=== PATIENT | female | born 1980 | race Two or more races ===

== ENCOUNTER 2024-06-08 08:17 | Emergency (ER) | payer MEDICAID, SELFPAY ==
[2024-06-08 08:32] VITALS: BP 122/84; PULSE 95; RESP 19; TEMP 36.7; O2SAT 100; BMI 31.8
--- NOTE | 2024-06-08 08:55 | XR_ITS ---
Examination: Shoulder,right, 3 views Technique: Shoulder AP internal rotation, AP external rotation, Y view shoulder, 3 views Exam date and time :June 08, 2024 0915 hrs. Indications: Right shoulder pain today Findings: Mild narrowing glenohumeral joint No shoulder fracture or dislocation No acute separation Impression: Mild narrowing glenohumeral joint
[2024-06-08] MEDS: KETOROLAC INJ 60 MG/2 ML VIAL 30 MG IM (09:07)
[2024-06-08] MEDS: CYCLObenzaPRINE 5 MG TABLET PO (09:08)
--- NOTE | 2024-06-08 09:47 | EDNOTE_ITS ---
Upper Extremity Injury RME/HPI General Chief Complaint: Extremity Injury, Upper Stated Complaint: RIGHT ARM PAIN Time Seen by Provider: 06/08/24 08:24 Arrival date/time: 06/08/24 08:17 Limitations: no limitations RME / HPI RME / HPI narrative: 44-year-old female presents for evaluation of right shoulder pain x3 hrs. She reports spontaneous onset when she woke this morning and describes it as aching with radiation to her right scapula. She denies numbness, tingling, neck pain, headache, visual changes. Denies chest pain and shortness of breath. She denies taking medication prior to arrival to the ED. MD complaint: injury to: right Onset (ago): hour(s) Relieving factors: none Exacerbating factors: none Related Data Home Medications ?Medication ?Instructions ?Recorded ?Confirmed glipizide 10 mg tablet 10 mg PO BID 05/08/18 05/08/18 insulin glargine 100 unit/mL (3 70 units subcut QDAY 05/08/18 05/08/18 mL) subcutaneous pen (Basaglar KwikPen U-100 Insulin) insulin lispro 100 unit/mL 30 unit subcut QDAY 05/08/18 05/08/18 subcutaneous pen (Humalog KwikPen (U-100) Insulin) linagliptin 5 mg tablet (Tradjenta) 5 mg PO QDAY 05/08/18 05/08/18 lisinopril 20 mg tablet 20 mg PO QDAY 05/08/18 05/08/18 metformin 850 mg tablet 850 mg PO TID 05/08/18 05/08/18 Previous Rx's ?Medication ?Instructions ?Recorded cyclobenzaprine 10 mg tablet 10 mg PO TID PRN muscle spasm #20 06/08/24 tabs Allergies Allergy/AdvReac Type Severity Reaction Status Date / Time No Known Allergies Allergy Verified 06/08/24 08:20 Review of Systems Constitutional Constitutional: Denies body ache(s), Denies chills, Denies excessive sweating, Denies fever(s), Denies headache(s), Denies night sweats and Denies weakness ENT Ears, Nose, Mouth, and Throat: Denies disequilibrium, Denies dizziness, Denies headache(s) and Denies neck pain Cardiovascular Cardiovascular: Denies chest pain, Denies dyspnea, Denies leg edema and Denies palpitations Respiratory Respiratory: Denies cough, Denies dyspnea and Denies wheezing Gastrointestinal Gastrointestinal: Denies abdominal pain, Denies nausea and Denies vomiting Musculoskeletal Musculoskeletal: Reports arthralgias (right shoulder), Reports back pain (right scapular ), Denies neck pain, Denies numbness and Denies tingling Integumentary/Breasts Skin/Breast: Denies rash and Denies wounds Neurologic Neurologic: Denies disequilibrium, Denies dizziness, Denies headache(s), Denies numbness, Denies tingling and Denies weakness Endocrine Endocrine: Denies excessive sweating and Denies palpitations Allergic/Immunologic Allergic/Immunologic: Denies wheezing Past Medical History Past Medical History CARDIAC: Positive Hypercholesterolemia and Hypertension; Negative Congestive Heart Failure RESPIRATORY: Negative Chronic Obstructive Pulmonary Disease (COPD) GENITOURINARY: Negative Renal Disease ENDOCRINE: Positive Diabetes Mellitus Type 2; Negative Diabetes Mellitus Type 1 Surgical History SURGICAL: Positive Section Social History SMOKING STATUS: Never smoker ED Exam General Limitations: Present no limitations General appearance: Present alert and in no apparent distress Head Head exam: Present atraumatic and normocephalic Eye Eye exam: Present normal appearance and EOMI ENT ENT exam: Present mucous membranes moist and normal external ear exam Neck Neck exam: Present normal inspection and full ROM Expanded Neck Exam Neck exam focused ED: Absent midline tenderness or paraspinal tenderness Chest Chest inspection: Present normal inspection and symmetric chest wall rise Respiratory Respiratory exam: Present normal lung sounds bilaterally; Absent respiratory distress Cardiovascular Cardiovascular exam: Present regular rate, +S1 and +S2 Abdominal Exam Abdominal exam: Present soft; Absent distention Expanded Upper Extremity Exam Shoulder exam: Present normal inspection and full ROM; Absent tenderness, swelling, ecchymosis, deformity, crepitus, dislocation or tenderness over AC joint Arm exam: Present normal inspection and full ROM Elbow exam: Present normal inspection and full ROM Forearm/Wrist exam: Present normal inspection and full ROM Hand exam: Present normal inspection and full ROM Vascular exam: Normal capillary refill Back Exam Back exam: Present normal inspection, full ROM and muscle spasm (right scapular region ); Absent paraspinal tenderness or vertebral tenderness Neurological Exam Neurological exam: Present alert and normal gait; Absent motor sensory deficit Psychiatric Psychiatric exam: Present normal affect Skin Skin exam: Present warm, dry, intact and normal color Course Quality Measures none Orders Category Date Time Status XR shoulder RT min 2V Stat Exams 06/08/24 08:55 Taken CYCLObenzaPRINE [Flexeril] Med 06/08/24 08:55 Discontinued 5 mg PO X1 ONE Ketorolac Inj [Toradol Inj] Med 06/08/24 08:55 Discontinued 30 mg IM X1 ONE Vital Signs Vital signs: Vital Signs Temperature 98.1 F 06/08/24 08:32 Pulse Rate 95 06/08/24 08:32 Respiratory Rate 19 06/08/24 08:32 Blood Pressure 122/84 06/08/24 08:32 Pulse Oximetry (%) 100 06/08/24 08:32 Oxygen Delivery Method Room Air 06/08/24 08:32 Pulse ox 100% on room air, within normal limits. Extremity Injury MDM Narrative MDM Narrative:: * The absence of chest pain and shortness of breath makes a serious cardiac event like a myocardial infarction less likely, though not ruled out entirely. * The lack of associated neurological symptoms (numbness, tingling, or weakness) makes a cervical radiculopathy or more severe nerve injury less likely, but the radiation of pain to the scapula could suggest a musculoskeletal or referred pain origin. * No C-spine tenderness to palpation, pointing away from cervical impingement. * No evidence of dislocation on physical exam or x-ray right shoulder today. No acute humeral fracture or clavicular fracture seen on my wet read. * The patient?s normal vital signs and absence of fever help rule out infection- related causes (e.g., septic arthritis or osteomyelitis). More likely muscle spasm, for which the patient was given a short course of antispasmodics. Patient agreeable with plan for discharge home with follow-up with primary care within the next 3 to 4 days for reevaluation. Patient stable at time of discharge. Patient data External records reviewed:: [facility] previous records Clinical information provided by:: patient and family Social determinants that could affect healthcare access:: none Patient has the following chronic illnesses:: Diabetes. How is presenting disease/condition affected by chronic disease/condition?: uneffected by Evaluation data The following diagnostics were reviewed and interpreted by me:: radiology exam(s) Lab and/or radiology exams considered but not ordered:: Labs considered not ordered. Interpretation Summary: No acute fracture or dislocation on x-ray of right shoulder. Medications / Prescriptions Medications or Prescriptions considered but not ordered:: Rx given. Medication administrations:: Medication Administration History Discontinued Medications Cyclobenzaprine HCl (Cyclobenzaprine 5 Mg Tablet) 5 mg PO X1 ONE Stop: 06/08/24 08:56 Last Admin: 06/08/24 09:08 Dose: 5 mg Documented By: BEATRIZ Ketorolac Tromethamine (Ketorolac Inj 60 Mg/2 Ml Vial) 30 mg IM X1 ONE Stop: 06/08/24 08:56 Last Admin: 06/08/24 09:07 Dose: 30 mg Documented By: BEATRIZ Rx given. Consultations Consultation(s) initiated? (list below): No Diagnosis Upper Extremity Injury Differential Diagnosis: dislocation of shoulder, fracture of clavicle and other Most likely diagnosis given after review of the tests above:: Muscle spasm. Admission Indicated Admission indicated?: not indicated Admission Request Was there a request for admission?: No Disposition Plan Disposition Plan: Discharge Discharge Attestation Discharge Attestation: The patient and all family members were given an opportunity to ask questions and understood the discharge instructions. Discharge instructions specifically effects, indications for sooner follow up or return to the emergency department, and the expected course of current diagnosis. Patient condition: Stable Discharge Plan Plan Patient Disposition: HOME (Self Care) Disposition Comment: stable Prescriptions/Referrals Prescriptions/Med Rec: New cyclobenzaprine 10 mg tablet 10 mg PO TID PRN (Reason: muscle spasm) Qty: 20 0RF No Action lisinopril 20 mg Tablet 20 mg PO QDAY glipizide 10 mg Tablet 10 mg PO BID metformin 850 mg Tablet 850 mg PO TID insulin lispro [Humalog KwikPen Insulin] 100 unit/mL Insulin Pen 30 unit SUBCUT QDAY insulin glargine [Basaglar KwikPen U-100 Insulin] 100 unit/mL (3 mL) Insulin Pen 70 units subcut QDAY linagliptin [Tradjenta] 5 mg Tablet 5 mg PO QDAY Referrals: Shyanne Parmar FNP [Primary Care Provider] - In 1 week Problem List Clinical Impression: Muscle spasm, Acute pain of right shoulder Patient/Caregiver Discharge Instructions Other Activity Instructions:: Take antispasmodic medication as needed for his muscle spasm. Follow-up with primary care within the next 3 to 4 days for reevaluation of right shoulder pain. Return to the ED if your symptoms worsen or change. Education Materials: ED Back Spasm, No Trauma Print Language: English Stand Alone Forms: [email or web address] Patient Portal Info Letter PA/PATTERN GENERATOR OPERATOR Supervising Physician PA/PATTERN GENERATOR OPERATOR Supervising Physician: Dr. Livingston
== END 2024-06-08 10:26 | disposition home or self-care (01) ==
PROVIDERS: Emergency Provider Emergency Medicine; PCP Registered Nurse
DX: M62.838 Other muscle spasm (principal); M25.511 Pain in right shoulder
CPT/HCPCS: 73030; 96372; 99283; J1885; A9270

== ENCOUNTER 2024-11-22 05:40 | Day surgery (SDC) | payer MEDICAID, SELFPAY ==
--- NOTE | 2024-11-21 06:30 | EKG_ITS ---
[facility] Test Date: 2024-11-21 Pat Name: FERNANDO WEAVER Department: Room: - Gender: Female Housing Management Representative: [facility] : 1980 Requested By: Oseas Adair Order Number: [id number] Reading MD: Oseas Adair Measurements Intervals [place] Rate: 94 P: 33 IA: 166 QRS: -36 QRSD: 96 T: 32 QT: 341 QTc: 428 Interpretive Statements SINUS RHYTHM MARKED LEFT AXIS DEVIATION [QRS AXIS < -30] PATTERN CONSISTENT WITH PULMONARY DISEASE Compared to ECG 05/08/2018 11:29:55 Left-axis deviation now present /store/S0/[id number].pdf
[2024-11-21 09:18] VITALS: BMI 33.0
[2024-11-21 11:40] LABS: Basophils % (Auto) 0 % (0-2.5); Eosinophils # (Auto) 0.1 Thou/mm3 (0.0-0.5); Eosinophils % (Auto) 2 % (0-10); Hematocrit 43.6 % (36.0-46.0); Hemoglobin 13.6 g/dL (12.0-16.0); Immature Granulocytes % (Auto) 0 % (0-0); Immature Granulocytes Auto 0.02 Thou/mm3 (0.00-0.00); Lymphocytes % (Auto) 33 % (10-50); Mean Corpuscular HGB Conc 31.2 g/dl (31.0-37.0); Mean Corpuscular Hemoglobin 24.4 pg (25.0-35.0); Mean Corpuscular Volume 78 fL (80-100); Monocytes # (Auto) 0.6 Thou/mm3 (0.0-0.8); Monocytes % (Auto) 9 % (0-12); Neutrophils # (Auto) 3.5 Thou/mm3 (1.8-7.7); Neutrophils % (Auto) 56 % (37-80); Nucleated Red Blood Cell % 0 /100 WBC (0); Platelet Count 294 Thou/mm3 (140-440); RDW Standard Deviation 51.1 fL (36.4-46.3); Red Blood Count 5.58 Miln/mm3 (4.00-5.20); White Blood Count 6.2 Thou/mm3 (3.6-11.0)
[2024-11-21 11:50] LABS: Partial Thromboplastin Time 26.2 Seconds (22.0-36.0); Prothrombin Time 10.6 Seconds (9.0-12.2)
[2024-11-21 12:01] LABS: Alanine Aminotransferase 23 U/L (10-49); Albumin, Serum 4.7 gm/dL (3.5-5.0); Albumin/Globulin Ratio 1.3 (1.2-2.2); Alkaline Phosphatase 51 U/L (46-116); Anion Gap 10 (7-16); Aspartate Amino Transferase 26 U/L (0-34); BUN/Creatinine Ratio 16 Ratio (12-20); Bilirubin,Total 0.4 mg/dL (0.3-1.2); Blood Urea Nitrogen 14 mg/dL (9-23); Calcium 9.3 mg/dL (8.3-10.6); Calcium (Corrected) 9.3 mg/dL (8.5-10.1); Carbon Dioxide 27.2 mMol/L (20.0-31.0); Chloride 103 mMol/L (98-107); Creatinine (Component) 0.9 mg/dL (0.6-1.3); Estimated Creatinine Clearance 87.4 mL/min (>60); Globulin 3.6 gm/dL (2.3-3.5); Glucose 113 mg/dL (74-106); Osmolality,Calculated 280 (275-295); Potassium 4.1 mMol/L (3.4-5.1); Sodium 140 mMol/L (136-145); Total Protein 8.3 gm/dL (5.7-8.2); eGFR > 60 See Note
[2024-11-22] VITALS (8 sets, daily range): BP systolic 123–159; BP diastolic 81–98; PULSE 89–93; RESP 14–20; TEMP 36.6–36.8; O2SAT 95–99; BMI 32.3
[2024-11-22] MEDS: RINGERS LACTATED 1000 ML 1,000 ML 20 ML IV (06:47)
--- NOTE | 2024-11-22 09:11 | PD.SUROPNT ---
Date of Procedure 11/22/24 Pre Op Diagnosis Symptomatic varicose veins left lower extremity Post Op Diagnosis Same as preop diagnosis Procedure Endovenous radiofrequency ablation of the greater saphenous vein left lower extremity Varicose vein excisions left lower extremity through 46 separate incisions Findings Successful ablation of the greater saphenous vein with no evidence of thrombus in the saphenofemoral junction or the common femoral vein All marked varicose veins were successfully removed or disrupted Procedure Description With the patient standing in the preop area all varicose veins removed were carefully marked with a sharpie pen. The patient was then brought to the operating room and general anesthesia was induced. The left lower extremity was sterilely prepped and draped. The vein ablation procedure was performed first by mapping out the course of the greater saphenous vein between the knee and the saphenofemoral junction on the left medial thigh. The saphenous vein was then accessed with a 21-gauge mini stick needle just proximal to the knee followed by mini stick wire then a 7 Sloven[place] sheath introducer was placed. The ablation catheter was brought to the field prepped and placed into the patient with the catheter tip carefully positioned 3 to 5 cm distal to the saphenofemoral junction. Tumescent anesthesia was then instilled in the subcutaneous tissues surrounding the vein over the treatment length. Catheter tip position was once again ensured to be 3 to 5 cm distal to the saphenofemoral junction then under direct ultrasound compression the catheter was activated with 2 cycles proximally and 2 additional cycles down the leg. The saphenofemoral junction and common femoral vein were then inspected and found to be compressible with good flow and augmentation and no evidence of thrombus. Attention was then turned to the marked varicose veins which were removed by making a small skin pau with a #11 blade then bluntly enlarging the incision and grasping the veins with a mosquito clamp or a vein hook and sequentially excising them or disrupting them. When hemostasis was obtained and the wounds the leg was washed and then Steri-Strips were applied then a sterile dressing was applied with gauze, Kerlix and an Lorenzo wrap. Patient woke from anesthesia and was moved to recovery in stable condition Anesthesia other (Laryngeal mask anesthesia) Pathology / specimen Other (Left leg varicose veins) Pathology comment: Left leg varicose veins Estimated Blood Loss 50 Condition Stable Disposition PACU Surgeon Oseas Paz MD Surgical Staff Operation Date: 11/22/24 07:30 Case Staff Anesthesiologist: Justen Carter WOMEN'S BASKETBALL COACH: James Velasquez
--- NOTE | 2024-11-22 09:26 | SUR.PHASEI ---
pt arrived to PACU via gurney drowsy but arouses to voice, breathing unlabored, dressing to left lower extremity clean, dry, and intact, report from Gurdeep SMYTH, Gen MOCTEZUMA, and Dr Carter
[2024-11-22] MEDS: ONDANSETRON INJ 2 MG/ML INJ 2 ML 4 MG IV (10:00)
--- NOTE | 2024-11-22 10:46 | SUR.PHASEII ---
pt awake, alert, able to follow commands, breathing unlabored, dressing to lower left extremity clean, dry, and intact after ambulation, pt able to ambulate with steady gait, discharge instructions given with spouse present using telephone oracle business analyst Maxine ID#[id number], all questions answered, pt discharged via wheelchair with all belongings and copies of discharge paperwork.
== END 2024-11-22 10:46 | disposition home or self-care (01) ==
PROVIDERS: Anesthesiology; PCP Registered Nurse; Referring Provider Surgery Vascular Surgery; Visit Provider Surgery Vascular Surgery
PROC: (CPT 36475; principal; 2024-11-22 07:30)
DX: I83.812 Varicose veins of left lower extremity with pain (principal); Z01.810 Encounter for preprocedural cardiovascular examination
CPT/HCPCS: 36475; 37766; 36415; 80053; 85025; 85610; 85730; 93005; A4217; C1888; C1894; J1100; J2250; J2371; J2405; J2704; J3010; J3490; J7050; J7120